=== PATIENT | female | born 1975 | race Caucasian/White ===

== ENCOUNTER → 2023-08-17 12:59 | Outpatient (REF) | payer OTHER, SELFPAY | LOC: RAD 12:59 | PROVIDERS: ATTENDING PHYSICIAN Family Medicine | DX: R00.2 Palpitations (principal); R06.02 Shortness of breath | CPT/HCPCS: 71046 ==

== ENCOUNTER → 2023-08-19 11:08 | Outpatient (REF) | payer OTHER, SELFPAY | LOC: RCS 11:08 | PROVIDERS: ATTENDING PHYSICIAN Family Medicine | DX: R00.2 Palpitations (principal); R06.02 Shortness of breath | CPT/HCPCS: 93225; 93226 ==

== ENCOUNTER → 2023-09-04 13:00 | Outpatient (REF) | payer OTHER, SELFPAY | LOC: HWRCS 13:00 | PROVIDERS: ATTENDING PHYSICIAN Family Medicine | DX: R00.2 Palpitations (principal); R06.02 Shortness of breath | CPT/HCPCS: 93306 ==

== ENCOUNTER 2024-05-10 02:25 | Emergency (ER) | payer OTHER, SELFPAY ==
[2024-05-10 02:26] VITALS: BP 142/96
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
== END 2024-05-10 02:45 ==
LOC: EMR 02:25
PROVIDERS: EMERGENCY PHYSICIAN Emergency Medicine
DX: F10.129 Alcohol abuse with intoxication, unspecified (principal); Z04.3 Encounter for examination and observation following other accident; V89.2XXA Person injured in unspecified motor-vehicle accident, traffic, initial encounter; Z65.3 Problems related to other legal circumstances
CPT/HCPCS: 99283

== ENCOUNTER 2024-09-27 02:29 | Emergency (ER) | payer OTHER, SELFPAY ==
[2024-09-27 02:31] VITALS: BP 112/90
[2024-09-27] MEDS: TORADOL 15 MG IV (02:50)
[2024-09-27] MEDS: ZOFRAN 4 MG IV ×2 (02:54→04:16)
[2024-09-27 03:07] LABS: % Basophils 0.9 % (0-2); % Eosinophils 2.8 % (0-6); % Immature Granulocytes 0.2 % (0-0.5); % Lymphocytes 32.2 % (20.5-51.1); % Monocytes 9.3 % (1.7-9.3); % Neutrophils 54.6 % (42.2-75.2); Absolute Basophils 0.1 10^3/uL (0-0.2); Absolute Eosinophils 0.3 10^3/uL (0-0.7); Absolute Lymphocytes 2.9 10^3/uL (1.2-3.4); Absolute Monocytes 0.8 10^3/uL (0.1-0.6); Absolute Neutrophils 4.8 10^3/uL (1.4-6.5); Hematocrit 38.3 % (37.0-47.0); Hemoglobin 13.6 g/dL (12.0-16.0); Mean Corp Hgb Conc. 35.5 g/dL (33.0-37.0); Mean Corpuscular Hgb 31.3 pg (27.0-31.0); Mean Platelet Volume 8.9 fL (7.4-10.4); Nucleated Red Blood Cells % 0 %; Platelet Count 304 10^3/uL (130-400); Red Blood Cell Count 4.35 10^6/uL (4.20-5.40); Red Cell Dist. Width 11.7 % (11.5-14.5); White Blood Cell Count 8.9 10^3/uL (4.8-10.8)
[2024-09-27 03:10] LABS: HCG, Serum Qualitative Screen Negative
[2024-09-27 03:18] LABS: ALT (SGPT) 21 U/L (0-35); AST (SGOT) 25 U/L (14-36); Albumin 4.5 g/dl (3.5-5.0); Alkaline Phosphatase 49 U/L (38-126); Blood Urea Nitrogen 28 mg/dl (7-17); Calcium 9.7 mg/dl (8.4-10.2); Carbon Dioxide 26 mmol/L (22-30); Chloride 109 mmol/L (98-107); Glucose 121 mg/dl (70-99); Lipase 117 U/L (23-300); Potassium 3.7 mmol/L (3.5-5.1); Sodium 144 mmol/L (135-145); Total Bilirubin 0.5 mg/dl (0.2-1.3); Total Protein 7.1 g/dl (6.3-8.2); eGFR > 60.00
[2024-09-27 04:01] VITALS: BP 156/114
[2024-09-27] MEDS: MORPHINE SULFATE 4 MG IV ×2 (04:16→05:50)
[2024-09-27 04:18] VITALS: BMI 17.0
[2024-09-27 04:47] VITALS: BP 118/75
[2024-09-27 05:00] VITALS: BP 113/78
--- NOTE | 2024-09-27 05:16 | ED.GENMED ---
History of Present Illness
General
Chief Complaint: Abdominal Pain
Time Seen by Provider: 09/27/24 03:54
History of Present Illness
History of Present Illness:
Pleasant 49-year-old female presents the emergency department right-sided flank pain radiating into her abdominal. Denies fever, chills, or vomiting. She does report some nausea especially when the pain is at its worst. Pain came on approximate
30 minutes prior to arrival. Denies constipation or diarrhea.
Past History
Past History
ED Past Medical History: None
ED Past Surgical History: Orthopedic
Social History
Tobacco: Non-smoker
Alcohol: None
Drug: None
Personal:
Living: with family
Phy Exam
Physical Exam
Physical Exam:
Physical Exam
Vital signs and allergy list reviewed and agreed with.
GENERAL: Alert , in moderate apparent distress
EYE: pupils equal, EOMI, anicteric
NECK: Supple, no significant adenopathy. No masses. Trachea midline
ENT: Oropharynx is clear, mmm.
CARDIAC: Regular rate and rhythm . No M/R/G
LUNGS: Clear breath sounds bilaterally, no acute respiratory distress, no wheezes/rales/rhonchi
ABDOMEN: Soft, without focal tenderness, no r/g, right cvat. Normal BSx4q
NEUROLOGICAL: Alert and oriented, no focal neuro deficits
SKIN: Warm and dry, skin intact.
MUSCULOSKELETAL: No edema, well perfused. Moves all 4 extremities
PSYCH: Normal and appropriate interaction.
Course
Orders/Labs/Results
Orders:
Orders
09/27/24 02:36
IV Insert/Care/Rem.- Treatment PRN
Test Result ONCE
09/27/24 02:45
Complete Blood Count/With Diff Urgent
Comprehensive Metabolic Panel Urgent
HCG, Serum Qualitative Screen Urgent
Comment: Notify provider if positive test present
Lipase Urgent
09/27/24 02:47
Ketorolac [Toradol] 15 mg .ROUTE .STK-MED ONE
Ondansetron Injectable [Zofran] 4 mg .ROUTE .STK-MED ONE
09/27/24 02:49
Ketorolac [Toradol] 15 mg IV NOW STA
09/27/24 02:54
Ondansetron Injectable [Zofran] 4 mg IV NOW STA
09/27/24 03:02
CT Abd/pel Without Iv Or Oral Urgent
Comment: hx kidney stone
Reason For Exam: acute onset back and rlq pain with vomiting
09/27/24 04:05
Morphine Sulfate 4 mg IV NOW STA
Ondansetron Injectable [Zofran] 4 mg IV NOW STA
09/27/24 05:40
Urinalysis Reflex To Culture Urgent
Date Specimen was Collected: 09/27/24
Time Specimen was Collected: 05:34
Urine Microscopic Reflex Cult Urgent
Urine Culture Urgent
BEBO Source: U
Specimen Description:
Date Specimen was Collected: 09/27/24
Time Specimen was Collected: 05:34
Morphine Sulfate 4 mg IV NOW STA
09/27/24 06:42
Cephalexin Monohydrate [Keflex] 500 mg PO NOW STA
Abnormal Lab Results
09/27/24 09/27/24
02:45 05:40
MCH 31.3 H pg
(27.0-31.0)
Absolute Monos (auto) 0.8 H 10^3/uL
(0.1-0.6)
Chloride 109 H mmol/L
(98-107)
BUN 28 H mg/dl
(7-17)
Glucose 121 H mg/dl
(70-99)
Ur Occult Blood Reflex 2+ A
(Negative)
Leukocyte Esterase Rfl 2+ A
(Negative)
Urine Bacteria (Reflex) Many A
(Negative)
Urine Albumin (Reflex) 1+ A
(Neg - Trace)
09/27/24 02:45
09/27/24 02:45
Vital Signs
Initial and Last Documented VS:
Initial Vital Signs
Temp Pulse Resp BP Pulse Ox
97.9 F 67 22 112/90 100
09/27/24 02:31 09/27/24 02:31 09/27/24 02:31 09/27/24 02:31 09/27/24 02:31
Last Documented Vital Signs
Temp Pulse Resp BP Pulse Ox
97.9 F 67 22 113/78 97
09/27/24 02:31 09/27/24 02:31 09/27/24 02:31 09/27/24 05:00 09/27/24 05:30
*Pulse Oximetry
Patient hypoxic: no (100% on room air)
*Critical Care Note
Total Time (30-74mins, 75-104mins- exclusive of procedures): Not Applicable
Update Note
Update Note:
NAME: SONY RAMIREZ
DATE OF EXAM: 09/27/2024
Patient No: [id number]
Physician: NAV
Date of : 1975
Past Medical History (entered by Technologist):
Reason For Exam (entered by Technologist):
Other Notes (entered by Technologist): rt flank pain woke pt from sleep
no priors
Additional Information (per [facility]):
CT ABDOMEN PELVIS WITHOUT CONTRAST
COMPARISON: None
IMPRESSION:
Mild right hydronephrosis due to an obstructing 3 mm stone at the right ureterovesical junction.
Additional nonobstructing right kidney calyceal stone measuring 3 mm.
No evidence of diverticulitis or colitis. Normal appendix. No bowel obstruction. No free air.
No concerning bone finding.
Case results were faxed/electronically transmitted at 0508 EST. If there are any questions please feel free to contact me directly at [phone], ext [phone]. If you cannot reach me at this number, do not leave a voicemail. Please call [phone]
ext [phone] and ask for the next available radiologist.
Rene Pandya M.D.
ED Attending Note
-
Portions of this chart may have been created with voice recognition software.� Occasional wrong word or��sound alike� substitutions may have occurred due to the inherent limitations of voice recognition software.
Discharge Plan
Departure
Patient Disposition: Home (Routine Discharge)
Date of Disposition: 09/27/24
Time of Disposition: 06:43
Patient with high blood pressure during this ER visit?: No
Discharge Problem:
Kidney stone on right side
Instructions: Kidney stones in adults, How to Strain Your Urine
Prescriptions:
New
oxycodone-acetaminophen [Percocet] 5-325 mg Tablet
1 tab PO Q4HPRN PRN (Reason: pain) Qty: 7 0RF
diclofenac sodium 75 mg tablet,delayed release (DR/EC)
75 mg PO BID Qty: 10 0RF
tamsulosin [Flomax] 0.4 mg capsule
0.4 mg PO DAILY Qty: 7 0RF
cephalexin 250 mg capsule
250 mg PO BID 7 Days Qty: 14 0RF
Referrals:
Kori Maradiaga MD [Family Provider, Family Practice]
Activity Restrictions/Additional Instructions:
Your prescriptions were sent electronically to the pharmacy that you specified.
Thank You for choosing [facility].
It was a pleasure meeting you and taking part in your care. We hope for your continued healing and wellness.
Please read discharge instructions in their entirety. However, they are for general education and may not describe your exact diagnosis at discharge. Information on your ER visit and medical conditions were discussed with you along with appropriate
follow up information...
If indicated, please take your medications as instructed and indicated on discharge paperwork.
Please schedule a follow up appointment as directed. Call to schedule an appointment
Please return to the emergency department with ANY change in, persisting, or worsening of symptoms. If any of your symptoms do not improve, or persist, or become more severe within 6-12 hours, please return to the emergency department for further
care.
Please return to the emergency department if you develop a headache, neck pain/stiffness, fever greater than 100.4F, chest pain, shortness of breath, persistent nausea, vomiting, slurred speech, difficulty walking, numbness/tingling, weakness, signs
of infection or any other symptoms that are worrisome to you.
If you have any questions or concerns please do not hesitate to call the Hospital at or E-mail me directly at [email or web address]
Interventions
Interventions:
*Risk Screen - Suicide Last Done: 09/27/24 02:31
*General Assessment Last Done: 09/27/24 04:00
*Neglect/Abuse Screening Last Done: 09/27/24 04:00
*ED- Fall Risk Assessment Last Done: 09/27/24 04:00
*ED COVID-19 Vaccine History Last Done: 09/27/24 04:00
*Nursing Disposition Last Done: 09/27/24 07:00
FE-Hznkqm-[id number] Assessment Last Done: 09/27/24 04:00
Discharge Date and Time
Discharge Date/Time: 09/27/24 07:00
Print Language: SYRIAC
[2024-09-27 05:58] LABS: Urine Albumin 1+ (Neg - Trace); Urine Bilirubin Negative (Negative); Urine Character Slightly Cloudy (Clear); Urine Color Yellow; Urine Glucose Negative (Negative); Urine Ketone Negative (Negative); Urine Leukocyte 2+ (Negative); Urine Nitrite Negative (Negative); Urine Occult Blood 2+ (Negative); Urine Urobilinogen Negative (Neg - 1+)
[2024-09-27 06:23] LABS: Urine Amorphous Seen; Urine Mucus Many; Urine Squamous Cell >30 /LPF (Few); Urine Urothelial Cell >30 /LPF (FEW)
[2024-09-27 06:24] LABS: Urine Bacteria Many (Negative); Urine Calcium Oxalate Crystals Seen
[2024-09-27] MEDS: KEFLEX 500 MG PO (06:52)
== END 2024-09-27 07:00 | disposition home or self-care (01) ==
LOC: EMR 02:29
PROVIDERS: EMERGENCY PHYSICIAN Student in an Organized Health Care Education/Training Program; FAMILY PHYSICIAN Family Medicine
DX: N13.2 Hydronephrosis with renal and ureteral calculous obstruction (principal); R11.0 Nausea
CPT/HCPCS: 96374; 96375; 96376; 99284; 74176; 80053; 81003; 81015; 83690; 84703; 85025; 87086

== ENCOUNTER → 2025-02-04 08:42 | Outpatient (REF) | payer OTHER, SELFPAY | LOC: RAD 08:42 | PROVIDERS: ATTENDING PHYSICIAN Family Medicine | DX: R59.0 Localized enlarged lymph nodes (principal); R22.32 Localized swelling, mass and lump, left upper limb | CPT/HCPCS: 76536; 76882 ==

== ENCOUNTER → 2025-03-03 14:59 | Outpatient (REF) | payer OTHER, SELFPAY | LOC: CLAB 14:59 | PROVIDERS: ATTENDING PHYSICIAN Orthopaedic Surgery Hand Surgery | DX: M67.442 Ganglion, left hand (principal) | CPT/HCPCS: 88304 ==

== ENCOUNTER → 2025-04-14 10:57 | Outpatient (REF) | payer OTHER, SELFPAY | LOC: HWWDC 10:57 | PROVIDERS: ATTENDING PHYSICIAN Family Medicine | DX: Z12.31 Encounter for screening mammogram for malignant neoplasm of breast (principal) | CPT/HCPCS: 77063; 77067 ==